=== PATIENT | female | born 1995 | race Caucasian/White ===

== ENCOUNTER → 2019-11-16 10:45 | Outpatient (BNVA) | payer OTHER, SELFPAY | PROVIDERS: Family Provider Family Medicine; PCP Family Medicine; Visit Provider Obstetrics & Gynecology | DX: R89.6 Abnormal cytological findings in specimens from other organs, systems and tissues (principal); R87.610 Atypical squamous cells of undetermined significance on cytologic smear of cervix (ASC-US) | CPT/HCPCS: 76830 ==

== ENCOUNTER → 2019-11-19 13:14 | Outpatient (BNVA) | payer OTHER, SELFPAY | PROVIDERS: Family Provider Family Medicine; PCP Family Medicine; Visit Provider Obstetrics & Gynecology | DX: R87.610 Atypical squamous cells of undetermined significance on cytologic smear of cervix (ASC-US) (principal) | CPT/HCPCS: 81025 ==

== ENCOUNTER → 2019-11-20 10:48 | Outpatient (BNVA) | payer OTHER, SELFPAY | PROVIDERS: Family Provider Family Medicine; PCP Family Medicine; Visit Provider Obstetrics & Gynecology | DX: R87.610 Atypical squamous cells of undetermined significance on cytologic smear of cervix (ASC-US) (principal) | CPT/HCPCS: 88305 ==

== ENCOUNTER 2020-01-06 09:19 | Day surgery (SDC) | payer OTHER, SELFPAY ==
[2020-01-04 10:26] VITALS: BMI 24.0
--- NOTE | 2020-01-04 10:33 | ANES.PREANE2 ---
Pre-Anesthetic Assessment Pre-Anesthetic Assessment: Height/Weight: Height 1.63 m Weight 63.503 kg Preop Diagnosis: Cervical moderate dysplasia (RASHAD-II, HSIL) Proposed Procedure: Operation Date: 01/06/20 10:45 Proposed Procedures p Cold Knife Cone Biopsy/18930 N87.1(Not Applicable) - Ke Vasquez MD Familial anesthetic complications: None Social: Social History: No alcohol and No tobacco Exam: Pre-Anes Outpt Exam: alert, oriented x 3, clear to auscultation bilaterally and regular rate & rhythm Airway: Cervical ROM: WNL MP: 2 Dentition: Full CV/HEM: CV/HEM: HTN and Palp Anesthetic Plan: ASA status: 1 Anesthesia: General Risk of > 500 ml blood loss (7ml/kg in children): No PFSH Anesthesia PFSH: Surgical History History of surgical removal of ganglion cyst x2 History of tonsillectomy and adenoidectomy Hx of tooth extraction [place] teeth romoved Family History Family/Other Cancer Maternal cousin - Colon cancer Denies family history of Diabetes CAD (coronary artery disease) Clotting disorder Dementia Hyperlipidemia Psychiatric illness Chronic kidney disease (CKD) Suicide Anesthesia complication Bleeding disorder Family history of premature coronary artery disease Lung disease Hypertension Stroke Social History (Updated 01/04/20 @ 08:35 by Mana Sanders RN) Smoking and tobacco status: current every day smoker cigarettes Packs smoked per day: 0.33 Alcohol intake: never Substance/Drug Use: never Other details last substance use: Denies drug use. Female Reproductive History: Para: 3 Spontaneous abortions: Yes Data Anesthesia Cardiac Studies: No Data to Display
[2020-01-04 11:22] LABS: Anion Gap 10.6 (5-19); Blood Urea Nitrogen 11 mg/dL (6-20); Calcium 8.6 mg/dL (8.5-10.5); Carbon Dioxide 29 mmol/L (22-29); Chloride 104 mmol/L (98-107); Creatinine Clr Calc Pharmacy 131.7389; Glomerular Filtration Rate 121.8 mL/min (90-130); Glucose 86 mg/dL (65-115); Osmolality Calculated 285 mOsm/kg (285-295); Potassium 3.6 mmol/L (3.5-5.1); Sodium 140 mmol/L (136-145)
--- NOTE | 2020-01-04 11:24 | P.ANESASSM_ITS ---
Pre-Anesthetic Assessment Pre-Anesthetic Assessment: Height/Weight: Height 1.63 m Weight 63.503 kg Preop Diagnosis: Cervical moderate dysplasia (RASHAD-II, HSIL) Proposed Procedure: Operation Date: 01/06/20 10:45 Proposed Procedures p Cold Knife Cone Biopsy/66411 N87.1(Not Applicable) - Ke Vasquez MD Was Beta Isra taken within 24 hours: N/A Exam: Pre-Anes Outpt Exam: oriented x 3, clear to auscultation bilaterally and regular rate & rhythm Airway: Submandibular: WNL Cervical ROM: WNL MP: 1 History/ROS: No significant history except as noted Anesthetic Plan: ASA status: 1 Anesthesia: General Other: history of PONV. would use TIVA and scop patch PFSH Anesthesia PFSH: Surgical History History of surgical removal of ganglion cyst x2 History of tonsillectomy and adenoidectomy Hx of tooth extraction [place] teeth romoved Family History Family/Other Cancer Maternal cousin - Colon cancer Denies family history of Diabetes CAD (coronary artery disease) Clotting disorder Dementia Hyperlipidemia Psychiatric illness Chronic kidney disease (CKD) Suicide Anesthesia complication Bleeding disorder Family history of premature coronary artery disease Lung disease Hypertension Stroke Social History (Updated 01/04/20 @ 08:35 by Mana Sanders RN) Smoking and tobacco status: current every day smoker cigarettes Packs smoked per day: 0.33 Alcohol intake: never Substance/Drug Use: never Other details last substance use: Denies drug use. Female Reproductive History: Para: 3 Spontaneous abortions: Yes Data Anesthesia CBC & Chem 7: 01/04/20 10:25 Cardiac Studies: No Data to Display
[2020-01-04 12:29] LABS: OR HCG Qualitative Urine Negative (Negative)
[2020-01-06] VITALS (8 sets, daily range): BP systolic 130–138; BP diastolic 74–90; PULSE 88–115; RESP 12–18; TEMP 36.4–36.9; O2SAT 97–100
[2020-01-06] MEDS: scopolamine 1.5 Patch 1 PATCH TRANSDERMA (09:36)
[2020-01-06] MEDS: sodium chloride 0.9% 1,000 ML 30 ML IV (09:47)
[2020-01-06 10:21] LABS: Basophils % 0.8 %; Eosinophils # 0.1 10^3/uL (0.0-0.8); Eosinophils % 2.4 %; Hemoglobin 12.7 g/dL (11.5-15.3); Lymphocytes # 1.8 10^3/uL (0.8-4.8); Lymphocytes % 34.7 %; Mean Corpuscular HGB Conc 31.8 g/dL (30.0-36.0); Mean Corpuscular Hemoglobin 28.5 pg (28.0-34.0); Mean Corpuscular Volume 89.7 fL (81-99); Mean Platelet Volume 11.3 fL (7.4-10.4); Monocytes # 0.3 10^3/uL (0.2-0.9); Neutrophils # 2.82 10^3/uL (1.8-7.7); Neutrophils % 55.9 %; Nucleated Red Blood Cells % 0 %; Platelet Count 242 10^3/cmm (130-400); Red Blood Count 4.46 10^6/uL (4.1-5.3); Red Cell Distribution Width 12.7 % (12.1-15.1)
--- NOTE | 2020-01-06 10:30 | P.ANESUD_ITS ---
Pre-Anesthetic Update Pre-Anesthetic Assessment: Date of Surgery/Procedure: 01/06/20 Preop Caryl gnosis: Cervical moderate dysplasia (RASHAD-II, HSIL) Proposed Procedure: Operation Date: 01/06/20 10:45 Proposed Procedures p Cold Knife Cone Biopsy/28160 N87.1(Not Applicable) - Ke Vasquez MD Any changes to Pre-Anesthetic Assessment?: No Last Intake: Intake Last Liquid Date 01/05/20 Last Liquid Time 21:30 Last Solid Date 01/05/20 Last Solid Time 21:00 Labs Last 48hrs: Laboratory Results - last 48 hr 01/04/20 01/04/20 01/06/20 10:25 10:30 10:13 WBC 5.0 RBC 4.46 Hgb 12.7 Hct 40.0 MCV 89.7 MCH 28.5 MCHC 31.8 RDW 12.7 Plt Count 242 MPV 11.3 H Neut % (Auto) 55.9 Lymph % (Auto) 34.7 [place] % (Auto) 6.0 Eos % (Auto) 2.4 Baso % (Auto) 0.8 Neut # (Auto) 2.82 Lymph # (Auto) 1.8 [place] # (Auto) 0.3 Eos # (Auto) 0.1 Baso # (Auto) 0.0 Nucleated RBC % (a uto) 0 Nucleated RBCs # 0.0 Sodium 140 Potassium 3.6 Chloride 104 Carbon Dioxide 29 Anion Gap 10.6 BUN 11 Creatinine 0.6 GFR Calculation 121.8 Glucose 86 Calculated Osmolal ity 285 Calcium 8.6 Urine HCG, Qual Negative Vitals: Temperature 98.4 F 01/06/20 09:33 Temperature Source Temporal Artery S can 01/06/20 09:33 Pulse Rate 98 01/06/20 09:33 Respiratory Rate 18 01/06/20 09:33 Blood Pressure 130/89 01/06/20 09:33 Blood Pressure Aviva n 102 01/06/20 09:33 Pulse Oximetry 100 01/06/20 09:33 Oxygen Delivery Me thod 01/06/20 09:33 Exam: Pre-Anes Outpt Exam: alert, oriented x 3, clear to auscultation bilaterally and regular rate & rhythm Cardiac Studies: No Data to Display
--- NOTE | 2020-01-06 10:30 | W.PM.OPSUD ---
Surgery/Procedure H&P Update DATE OF PROCEDURE: January 06, 2020 DATE H&P PERFORMED: 01/04/20 H&P UPDATE INFORMATION: I have reviewed H&P completed within last 30 days, I have examined patient prior to procedure and No changes to prior documentation PREOP DIAGNOSIS: Cervical moderate dysplasia (RASHAD-II, HSIL) PLANNED PROCEDURE: Operation Date: 01/06/20 10:45 Proposed Procedures p Cold Knife Cone Biopsy/43534 N87.1(Not Applicable) - Ke Vasquez MD
[2020-01-06 10:36] LABS: Add Urine Microscopic? NO
[2020-01-06 10:46] LABS: Bilirubin Urine Neg (NEGATIVE); Blood Urine Neg (Negative); Glucose Urine UA Norm (Normal); Ketones Urine Negative (Negative); Leukocyte Esterase Urine Negative (Negative); Nitrate Urine Negative (Negative); OR HCG Qualitative Urine Negative (Negative); Protein Urine Neg (Negative); Urine Appearance Clear (CLEAR); Urine Color Yellow (Yellow); Urobilinogen Urine Neg (Negative); pH Urine 7 (5-7)
--- NOTE | 2020-01-06 11:41 | PM.OP ---
Operative Report Date of procedure: January 06, 2020 Pre-op Diagnosis: Cervical moderate dysplasia (RASHAD-II, HSIL) Post-op diagnosis: same Procedure Done: Cervical cone biopsy Specimens removed/disposition: Cone Biopsy Surgeon: Ke Vasquez Anesthesia: General Estimated blood loss (mL): 10 IV fluids (mL): 600 Complications: none Findings: Normal cervical Condition: stable Disposition: PACU Brief History: 23-year-old female with an abnormal Pap smear ASCUS HPV positive colposcopy performed biopsy show RASHAD-2 HSIL. Procedure: After informed consent, the patient was taken to the operating room where general anesthesia was administered without difficulty. After administration of general anesthesia, the patient was placed in the dorsal lithotomy position, and prepped and draped in the usual sterile fashion. A time-out procedure was performed. The patient was examined under anesthesia and found to have a normal uterus with normal adnexa. A weighted speculum was then placed in the patient's vagina and the anterior lip of the cervix grasped with the singed toothed tenaculum A uterine sound was then advanced into the cervix to determine its direction and length. The decending cervical branchs of the uterine arteries were ligated with 2-0 Vicryl bilaterally at the level of the internal os. Attention was then turned to the cervix where it was stain with Lugol?s solution to hightlight the lesion. The paracervical area was then circumferentially infiltrated using Lidocaine 1% with epinephrine. A Lightswitch Cone Biopsy Excisor was used to cut the cone biopsy in circular fashion and following removal of the specimen a suture was placed at the 12 o?clock location and fixed in formalin. Bleeding was minimal. The patient tolerated the procedure well, sponge, lap and needle counts were correct times two She was taken to the recovery room in good condition.
--- NOTE | 2020-01-06 12:08 | SUR.OPER ---
LUGOLS REFERENCE [id number] MLS, LOT [id number] EXP03/15 ADDED TO STERILE FIELD.
== END 2020-01-06 12:45 | disposition home or self-care (01) ==
PROVIDERS: Anesthesiology; PCP Family Medicine; Visit Provider Obstetrics & Gynecology
PROC: 0UB97ZZ Excision of Uterus, Via Natural or Artificial Opening (ICD-10-PCS; CPT 57520; principal; 2020-01-06 10:45)
DX: N87.1 Moderate cervical dysplasia (principal); A63.0 Anogenital (venereal) warts; F17.210 Nicotine dependence, cigarettes, uncomplicated
CPT/HCPCS: 57522; 12345; 36415; 80048; 81003; 81025; 84703; 85025; 86850; 86900; 88307; J0690; J1100; J2405; J2704; J3010; J7030

== ENCOUNTER → 2020-01-11 09:38 | Outpatient (BNVA) | payer OTHER, SELFPAY | PROVIDERS: PCP Family Medicine; Visit Provider Psychiatry & Neurology Neurology | DX: F41.1 Generalized anxiety disorder (principal) | CPT/HCPCS: 90791 ==

== ENCOUNTER → 2020-02-29 16:44 | Outpatient (BNVA) | payer OTHER, SELFPAY | PROVIDERS: Family Provider Family Medicine; PCP Family Medicine; Visit Provider Nurse Practitioner Family | DX: J02.9 Acute pharyngitis, unspecified (principal) | CPT/HCPCS: 87071; 87880 ==

== ENCOUNTER 2020-04-25 13:45 | Emergency (ER) | payer OTHER, SELFPAY ==
[2020-04-25 14:07] VITALS: BP 132/85; PULSE 84; RESP 14; TEMP 36.7; O2SAT 99
[2020-04-25 16:22] VITALS: BMI 25.7
--- NOTE | 2020-04-25 18:34 | ED_ITS ---
HPI - Abdominal Pain General: Chief Complaint: Abdominal Pain Stated Complaint: abd pain Time Seen by Provider: 04/25/20 18:24 History of Present Illness: HPI narrative: Patient is a 25-year-old female comes to the ED with right upper quadrant pain. She has had abdominal pain like this multiple times before over the past year. Patient says in the last month she has had 3 of these abdominal pain attacks. She says they always occur right after she eats some food and pain is located in the right upper quadrant and she has nausea as well. She had abdominal pain in the right upper quadrant a couple days ago and then it resolved. Today she ate some [place] food for lunch and developed severe right upper quadrant abdominal pain with some nausea. Here in the ED she says her pain has subsided considerably and she currently rates the pain a 3 out of 10. She does not want any pain meds while here in the ED. She says she currently does not have any nausea. She says if she is sitting up in a reclined position pain improves. She is recently seen her PCP for this abdominal pain and they ordered an outpatient gallbladder ultrasound that has not been scheduled and set up yet. Denies fever, chills, chest pain, shortness of breath, vomiting, diarrhea, constipation, dysuria or hematuria. Patient says she just finished her period a couple days ago and denies any chance of being . Associated Symptoms: Reports nausea; Denies chills, constipation, diarrhea, dysuria, fever(s), hematochezia, hematuria and vomiting Review of Systems Const: Denies: fever(s), chills or fatigue Eyes: Denies: change in vision or eye discomfort ENMT: Denies: throat pain, odynophagia, nasal discharge or nasal congestion Card: Denies: chest pain, palpitations, edema, swelling of feet/ankles, dyspnea on exertion or orthopnea Resp: Denies: dyspnea, productive cough or non-productive cough GI: Reports: abdominal pain (RUQ pain) and nausea; Denies: vomiting, diarrhea, constipation or hematochezia : Denies: flank pain, dysuria or hematuria Musc: Denies: neck pain, back pain or extremity swelling Skin/Breast: Denies: rash or new lesions Neuro: Denies: headache(s), numbness in extremities or weakness in extremities PFSH ED PFSH: Surgical History History of surgical removal of ganglion cyst x2 History of tonsillectomy and adenoidectomy Hx of tooth extraction [place] teeth romoved S/P cone biopsy of cervix 01/06/2020- cervical cone biopsy per Dr. Vasquez at [facility] Family History Family/Other Cancer Maternal cousin - Colon cancer Denies family history of Diabetes CAD (coronary artery disease) Clotting disorder Dementia Hyperlipidemia Psychiatric illness Chronic kidney disease (CKD) Suicide Anesthesia complication Bleeding disorder Family history of premature coronary artery disease Lung disease Hypertension Stroke Social History Smoking and tobacco status: current every day smoker cigarettes Packs smoked per day: 0.5 Alcohol intake: current Alcohol intake frequency: holidays/special occasions only Alcohol type: beer and wine Other details last substance use: Denies drug use. Female Reproductive History: Para: 3 Spontaneous abortions: Yes Physical Exam Const: COMMON NORMALS: no acute distress, patient oriented x3, healthy appearing and alert GENERAL APPEARANCE: cooperative and comfortable HENMT: COMMON NORMALS: normocephalic HEAD & SCALP: normocephalic MOUTH: Normal oral and palatal mucosa present THROAT: posterior oropharynx normal and uvula midline Eye: COMMON NORMALS: Equal, round and reactive pupils present PUPIL: Yes Equal, round and reactive pupils present Neck/C-Spine: COMMON NORMALS: supple GENERAL: Yes normal visual inspection Resp: COMMON NORMALS: normal respiratory effort, No retractions, No use of accessory muscles and clear to auscultation bilaterally AUSCULTATION: clear to auscultation bilaterally Cardio: COMMON NORMALS: regular rate, regular rhythm, S1 normal heart sound present, S2 normal heart sound present, No gallops present (Cardio), No clicks present (Cardio), No murmurs present (Cardio) and Peripheral pulses 2+ througho ut RATE: regular rate RHYTHM: regular rhythm HEART SOUNDS: S1 normal heart sound present and S2 normal heart sound present PERIPHERAL PULSES: Peripheral pulses 2+ throughout GI: COMMON NORMALS: Normal to inspection, nondistended, normoactive bowel sounds present, Soft to palpation and no masses PALPATION: Yes Soft to palpation and Yes Tenderness to palpation present (GI) Details: RUQ (Positive Nelson sign.) : COMMON NORMALS: Yes no CVA tenderness BLADDER/KIDNEY EXAM: Yes no CVA tenderness Back/Pelvis: COMMON NORMALS: no CVA tenderness Extremity: COMMON NORMALS: normal to inspection and no pedal edema Neuro: COMMON NORMALS: patient oriented x3 SENSORIUM/ORIENTATION: Yes alert GAIT: Yes Normal gait present Skin: GENERAL SKIN EXAM: dry skin Course Vital Signs: Vital signs: Vital Signs Temperature 98.1 F 04/25/20 14:07 Pulse Rate 75 04/25/20 19:47 Respiratory Rate 14 04/25/20 14:07 Blood Pressure 142/74 04/25/20 19:47 Pulse Oximetry 99 04/25/20 19:47 MDM - Abdominal Pain MDM Narrative: Medical decision making narrative: Patient is a 25-year-old female comes to the ED with abdominal pain in the right upper quadrant. Patient had right upper quadrant tenderness with positive Nelson sign. Patient does not appear to be in any acute distress and is sitting comfortably on the bed. She refused any pain meds because she said the pain is not that bad. CBC, CMP were unremarkable. hCG negative. Lipase 33. UA was unremarkable. Ultrasound gallbladder showed no acute findings and gallbladder was normal. scientific technical writer did note that there was quite a bit of stool seen. Patient was diagnosed with right upper quadrant abdominal pain and constipation. She was sent with a prescription for MiraLAX. Return to ED precautions given. Patient was told to follow-up with PCP in 7 to 10 days for reevaluation. Patient understood and agreed with plan. Lab Data: Attestation: I reviewed the patient's lab results. Labs: Lab Results 04/25/20 04/25/20 04/25/20 Range/Units 18:38 18:38 18:38 WBC 6.1 (4.0-10.0) 10^3/ uL RBC 4.95 (4.1-5.3) 10^6/u L Hgb 14.1 (11.5-15.3) g/dL Hct 44.2 (37.0-47.0) % MCV 89.3 (81-99) fL MCH 28.5 (28.0-34.0) pg MCHC 31.9 (30.0-36.0) g/dL RDW 13.1 (12.1-15.1) % Plt Count 282 (130-400) 10^3/c mm MPV 11.2 H (7.4-10.4) fL Neut % (Auto) 46.2 % Lymph % (Auto) 45.1 % [place] % (Auto) 5.6 % Eos % (Auto) 2.1 % Baso % (Auto) 0.8 % Neut # (Auto) 2.80 (1.8-7.7) 10^3/u L Lymph # (Auto) 2.7 (0.8-4.8) 10^3/u L [place] # (Auto) 0.3 (0.2-0.9) 10^3/u L Eos # (Auto) 0.1 (0.0-0.8) 10^3/u L Baso # (Auto) 0.1 (0.0-0.1) 10^3/u L Nucleated RBC % (a uto) 0 % Nucleated RBCs # 0.0 /100WBC Sodium 140 (136-145) mmol/L Potassium 3.6 (3.5-5.1) mmol/L Chloride 105 (98-107) mmol/L Carbon Dioxide 28 (22-29) mmol/L Anion Gap 10.6 (5-19) BUN 10 (6-20) mg/dL Creatinine 0.6 (0.5-0.9) mg/dL GFR Calculation 120.8 (90-130) mL/min Glucose 100 (65-115) mg/dL Calculated Osmolal ity 289 (285-295) mOsm/k g Calcium 9.3 (8.5-10.5) mg/dL Total Bilirubin 0.3 (0.15-1.2) mg/dL AST 17 (0-32) U/L ALT 19 (0-33) U/L Alkaline Phosphata se 49 (35-105) IU/L Total Protein 7.2 (6.6-8.7) g/dL Albumin 4.6 (3.5-5.2) g/dL Globulin 2.6 (1.3-4.6) g/dL Lipase 33 (13-60) U/L HCG, Qual Negative (Negative) Urine Color (Yellow) Urine Appearance (CLEAR) Urine pH (5-7) Ur Specific Gravit y (1.005-1.030) Urine Protein (Negative) Urine Glucose (UA) (Normal) Urine Ketones (Negative) Urine Blood (Negative) Urine Nitrate (Negative) Urine Bilirubin (Negative) Urine Urobilinogen (Negative) mg/dL Ur Leukocyte Kendra ase (Negative) 04/25/20 Range/Units 19:01 WBC (4.0-10.0) 10^3/ uL RBC (4.1-5.3) 10^6/u L Hgb (11.5-15.3) g/dL Hct (37.0-47.0) % MCV (81-99) fL MCH (28.0-34.0) pg MCHC (30.0-36.0) g/dL RDW (12.1-15.1) % Plt Count (130-400) 10^3/c mm MPV (7.4-10.4) fL Neut % (Auto) % Lymph % (Auto) % [place] % (Auto) % Eos % (Auto) % Baso % (Auto) % Neut # (Auto) (1.8-7.7) 10^3/u L Lymph # (Auto) (0.8-4.8) 10^3/u L [place] # (Auto) (0.2-0.9) 10^3/u L Eos # (Auto) (0.0-0.8) 10^3/u L Baso # (Auto) (0.0-0.1) 10^3/u L Nucleated RBC % (a uto) % Nucleated RBCs # /100WBC Sodium (136-145) mmol/L Potassium (3.5-5.1) mmol/L Chloride (98-107) mmol/L Carbon Dioxide (22-29) mmol/L Anion Gap (5-19) BUN (6-20) mg/dL Creatinine (0.5-0.9) mg/dL GFR Calculation (90-130) mL/min Glucose (65-115) mg/dL Calculated Osmolal ity (285-295) mOsm/k g Calcium (8.5-10.5) mg/dL Total Bilirubin (0.15-1.2) mg/dL AST (0-32) U/L ALT (0-33) U/L Alkaline Phosphata se (35-105) IU/L Total Protein (6.6-8.7) g/dL Albumin (3.5-5.2) g/dL Globulin (1.3-4.6) g/dL Lipase (13-60) U/L HCG, Qual (Negative) Urine Color Straw (Yellow) Urine Appearance Clear (CLEAR) Urine pH 7 (5-7) Ur Specific Gravit y 1.010 (1.005-1.030) Urine Protein Neg (Negative) Urine Glucose (UA) Norm (Normal) Urine Ketones Negative (Negative) Urine Blood Neg (Negative) Urine Nitrate Negative (Negative) Urine Bilirubin Neg (Negative) Urine Urobilinogen Norm (Negative) mg/dL Ur Leukocyte Kendra ase Negative (Negative) Imaging Data ^: US: Attestation: I personally reviewed and interpreted this imaging study as follows: Radiologist's impression: Ultrasound gallbladder?prelim report-gallbladder was negative. No stones or inflammation in the wall seen. Common bile duct normal. scientific technical writer did say that patient seemed to have quite a bit of stool seen on imaging suggesting constipation. Discharge Plan Discharge Patient Disposition: Home Clinical Impression: Abdominal pain Qualifiers: Abdominal location: right upper quadrant Qualified Code(s): R10.11 - Right upper quadrant pain Constipation Qualifiers: Constipation type: unspecified constipation type Qualified Code(s): K59.00 - Constipation, unspecified Condition: Stable Prescriptions: New Miralax 17 gram/dose powder 17 g PO DAILY PRN (Reason: constipation) Qty: 119 RF: 0 No Action citalopram 10 mg tablet 10 mg PO DAILY RF: 0 norgestimate-ethinyl estradiol [Sprintec (28)] 0.25-35 mg-mcg tablet 1 tab PO DAILY RF: 0 ibuprofen 800 mg tablet 800 mg PO TID PRN (Reason: pain) Qty: 60 RF: 0 omeprazole 40 mg Capsule,Delayed Release(Dr/Ec) 40 mg PO DAILY RF: 0 Discharge Orders: Discharge Order (Routine); Ordered 04/25/20 Ordered By: Benjamin Araujo Referrals: Benjamin Elaine MD [Primary Care Provider] - Discharge Diet: Regular Discharge Activity: Resume usual activity Patient Instructions: Constipation (ED), Abdominal Pain (ED) Activity Restrictions/Additional Instructions: Follow-up with medical provider as directed in 7-10 days. Take medications as prescribed. Take MiraLAX once daily as prescribed for the next 3 to 4 days to help with any constipation then use as needed. Drink plenty fluids and stay hydrated. Return to the ER or your medical provider if condition worsens. Please read and understand discharge instructions. If any questions, please ask. Coding Level of Care Code ED Oil Well Drilling Manager for Angie Fwd Exam Comprehensive
--- NOTE | 2020-04-25 18:43 | US_ITS ---
WS: [id number] ULTRASOUND ABDOMEN LIMITED CLINICAL INFORMATION: ruq pain with nausea COMPARISON: None. FINDINGS: Liver Size: Normal. Craniocaudal length: 13.5 cm. Echogenicity: Normal. Surface nodularity: None. Mass (size and location): None. Bile ducts Intrahepatic ducts: Normal. Common bile duct diameter: 0.3 cm. Gallbladder Normal. Gallstones: None. Gallbladder sludge: None. Gallbladder wall thickening: None. Pericholecystic fluid: None. Sonographic Nelson sign: Absent. Pancreas Normal as visualized. Right kidney: Normal. Hydronephrosis: None. Size: 11.1 cm x 4.6 cm x 3.9 cm. Abdominal aorta and IVC Visualized portions are normal. Ascites: None. US/US gall bladder [id number] IMPRESSION: Normal abdominal ultrasound
[2020-04-25 18:51] LABS: Basophils # 0.1 10^3/uL (0.0-0.1); Basophils % 0.8 %; Eosinophils # 0.1 10^3/uL (0.0-0.8); Eosinophils % 2.1 %; Hematocrit 44.2 % (37.0-47.0); Hemoglobin 14.1 g/dL (11.5-15.3); Lymphocytes # 2.7 10^3/uL (0.8-4.8); Lymphocytes % 45.1 %; Mean Corpuscular HGB Conc 31.9 g/dL (30.0-36.0); Mean Corpuscular Hemoglobin 28.5 pg (28.0-34.0); Mean Corpuscular Volume 89.3 fL (81-99); Mean Platelet Volume 11.2 fL (7.4-10.4); Monocytes # 0.3 10^3/uL (0.2-0.9); Monocytes % 5.6 %; Neutrophils % 46.2 %; Nucleated Red Blood Cells % 0 %; Platelet Count 282 10^3/cmm (130-400); Red Blood Count 4.95 10^6/uL (4.1-5.3); Red Cell Distribution Width 13.1 % (12.1-15.1); White Blood Count 6.1 10^3/uL (4.0-10.0)
[2020-04-25 19:06] LABS: Add Urine Microscopic? NO
[2020-04-25 19:14] LABS: Alanine Aminotransferase 19 U/L (0-33); Albumin Level 4.6 g/dL (3.5-5.2); Alkaline Phosphatase 49 IU/L (35-105); Anion Gap 10.6 (5-19); Aspartate Amino Transferase 17 U/L (0-32); Blood Urea Nitrogen 10 mg/dL (6-20); Calcium 9.3 mg/dL (8.5-10.5); Carbon Dioxide 28 mmol/L (22-29); Chloride 105 mmol/L (98-107); Globulin 2.6 g/dL (1.3-4.6); Glomerular Filtration Rate 120.8 mL/min (90-130); Glucose 100 mg/dL (65-115); Lipase 33 U/L (13-60); Osmolality Calculated 289 mOsm/kg (285-295); Potassium 3.6 mmol/L (3.5-5.1); Sodium 140 mmol/L (136-145); Total Bilirubin 0.3 mg/dL (0.15-1.2); Total Protein 7.2 g/dL (6.6-8.7)
[2020-04-25 19:14] LABS: Bilirubin Urine Neg (Negative); Blood Urine Neg (Negative); Glucose Urine UA Norm (Normal); Ketones Urine Negative (Negative); Leukocyte Esterase Urine Negative (Negative); Nitrate Urine Negative (Negative); Protein Urine Neg (Negative); Urine Appearance Clear (CLEAR); Urine Color Straw (Yellow); Urobilinogen Urine Norm (Negative); pH Urine 7 (5-7)
[2020-04-25 19:15] LABS: HCG, Serum Qual Negative (Negative)
[2020-04-25 19:47] VITALS: BP 142/74; PULSE 75; O2SAT 99
== END 2020-04-25 19:47 | disposition home or self-care (01) ==
PROVIDERS: Family Medicine; Emergency Provider Physician Assistant; Family Provider Family Medicine; PCP Family Medicine
DX: K59.00 Constipation, unspecified (principal); F17.210 Nicotine dependence, cigarettes, uncomplicated
CPT/HCPCS: 12345; 76705; 80053; 81003; 83690; 84703; 85025; 99283

== ENCOUNTER 2020-05-12 07:41 | Outpatient (CLI) | payer OTHER, SELFPAY ==
--- NOTE | 2020-05-12 07:50 | NM_ITS ---
WS: [id number] NUCLEAR MEDICINE HIDA SCAN WITH GALLBLADDER EJECTION FRACTION HISTORY: RUQ ABDOMINAL PAIN COMPARISON: 04/25/2020 TECHNIQUE: The patient was intravenously injected with 8.1 mCi of TC99m Mebrofenin. Immediate imaging over the right upper quadrant was followed by 5 minute image and additional images for a total of 60 minutes. Normal uptake of radiotracer throughout the liver. Activity identified in the gallbladder at 20 minutes and well distended by 60 minutes. Activity in the proximal small bowel was seen by 20 minutes. Good washout of the radiotracer from the liver by 60 minutes. The patient then drank 8 ounces of Ensure Plus. Ejection fraction at 60 minutes was 85%. Normal GB ej ection fraction is 35-75%. Post fatty meal symptoms: Minimal upper quadrant pain. NM/NM hepatobiliary w phar* [id number] IMPRESSION: 1. Normal HIDA scan. 2. Normal gallbladder ejection fraction.
== END 2020-05-12 07:42 | disposition home or self-care (01) ==
PROVIDERS: PCP Family Medicine; Visit Provider Family Medicine
DX: R10.11 Right upper quadrant pain (principal)
CPT/HCPCS: 78227; A9537

== ENCOUNTER → 2020-11-25 10:00 | Outpatient (BNVA) | payer OTHER, SELFPAY | PROVIDERS: PCP Family Medicine; Visit Provider Obstetrics & Gynecology | DX: Z12.4 Encounter for screening for malignant neoplasm of cervix (principal) | CPT/HCPCS: 88175 ==

== ENCOUNTER → 2023-05-21 15:44 | Outpatient (BNVA) | payer OTHER, BC, SELFPAY | PROVIDERS: PCP Family Medicine; Visit Provider Nurse Practitioner Family | DX: R53.83 Other fatigue (principal) | CPT/HCPCS: 80053; 80061; 82306; 84443; 85025 ==

== ENCOUNTER → 2023-06-12 10:09 | Outpatient (BNVA) | payer OTHER, BC, SELFPAY | PROVIDERS: PCP Family Medicine; Visit Provider Nurse Practitioner | DX: N39.0 Urinary tract infection, site not specified (principal) | CPT/HCPCS: 81000; 87077; 87086; 87184 ==

== ENCOUNTER → 2023-10-14 09:04 | Outpatient (BNVA) | payer OTHER, SELFPAY | PROVIDERS: PCP Family Medicine; Visit Provider Nurse Practitioner Family | DX: R39.9 Unspecified symptoms and signs involving the genitourinary system (principal) | CPT/HCPCS: 81000; 87086 ==

== ENCOUNTER → 2023-12-18 09:08 | Outpatient (BNVA) | payer BC, SELFPAY | PROVIDERS: PCP Family Medicine; Visit Provider Nurse Practitioner Family | DX: E55.9 Vitamin D deficiency, unspecified (principal); F32.A Depression, unspecified | CPT/HCPCS: 80053; 82306; 84443; 85025 ==

== ENCOUNTER → 2025-02-22 14:11 | Outpatient (BNVA) | payer BC, SELFPAY | PROVIDERS: PCP Nurse Practitioner Family; Visit Provider Nurse Practitioner Family | DX: R39.9 Unspecified symptoms and signs involving the genitourinary system (principal) | CPT/HCPCS: 81000 ==

== ENCOUNTER → 2025-04-12 10:27 | Outpatient (BNVA) | payer BC, SELFPAY | PROVIDERS: PCP Nurse Practitioner Family; Visit Provider Nurse Practitioner Family | DX: I10 Essential (primary) hypertension (principal) | CPT/HCPCS: 80053; 80061; 84443; 85025 ==

== ENCOUNTER 2025-05-17 07:59 | Outpatient (CLI) | payer BC, SELFPAY ==
--- NOTE | 2025-05-17 08:15 | USCV_ITS ---
Shey Kaba Age: 30 Gender: F : 1995 Exam Date: 05/17/2025 08:43 Ordering Phys: Kaylin PleitezP-Dalila Technologist: MU [place] [facility] [place]: [place] Aortic Velocity @ SMA (cm/s) 148 RIGHT KIDNEY LEFT KIDNEY Velocity (cm/s) Velocity (cm/s) Sys/Wilhelm Sys/Wilhelm Resistive Index Resistive Index 68.0 / 27.4 0.60 Proximal Renal Artery 68.3 / 25.2 0.63 57.2 / 21.9 0.62 Mid Renal Artery 59.9 / 22.6 0.62 52.4 / 21.4 0.59 Distal Renal Artery 61.1 / 22.7 0.63 54.9 / 16.4 0.70 Hilar 43.1 / 19.1 0.56 17.9 / 5.4 0.70 Upper Pole 24.5 / 9.6 0.61 21.5 / 7.1 0.67 Mid Pole 33.3 / 14.4 0.57 17.5 / 8.4 0.52 Lower Pole 22.3 / 8.2 0.63 2.17 Renal Aortic Ratio 2.16 Accleration Time (sec) 0.06 Hilar 0.06 0.09 Upper Pole 0.09 0.09 Mid Pole 0.09 0.10 Lower Pole 0.06 10.6 Kidney Length (cm) 11.2 FINDINGS No comparison. Normal size kidneys, no obstruction. No evidence of abdominal aortic aneurysm. There is no evidence of hemodynamically significant right renal artery stenosis. There is no evidence of hemodynamically significant left renal artery stenosis. CONCLUSIONS No sonographic evidence of renal aortic stenosis or aneurysm. Dr. Steph Burnett DO (Electronically Signed) Final Date: 17 May 2025 11:02 S
== END 2025-05-17 08:00 | disposition home or self-care (01) ==
LOC: RAD 07:59
PROVIDERS: PCP Nurse Practitioner Family; Visit Provider Nurse Practitioner Family
DX: I10 Essential (primary) hypertension (principal)
CPT/HCPCS: 93975